=== PATIENT | male | born 1985 | race Caucasian/White ===

== ENCOUNTER 2017-12-17 19:11 | Emergency (ER) | payer OTHER ==
--- NOTE | 2017-12-17 20:07 | ED Physician Documentation ---
PD HPI UPPER EXT INJURY - Stated complaint Stated Complaint: LT THUMB INJ - Chief complaint Chief Complaint: Ext Problem - History obtained from History obtained from: Patient - History of Present Illness Location: Left, Hand (thenar muscles area), Finger Type of injury: Blunt / blow (he was chopping wood in splitter, and a chunk did not split completely, so he lifted it up to throw it and felt a pain in left hand near base of thumb. Kep working but it did hurt. Was able to grab and lift. Had swelling later and today has had increased swelling with bruising color in thenar area. Feeling stiffer for thumb movement.). No: Laceration, Puncture wound Worsened by: Moving, Palpating Associated symptoms: Weakness, Swelling, Discolored (bruising). No: Numbness Similar symptoms before: Has not had sx before Recently seen: Not recently seen Review of Systems Skin: denies: Abrasion (s), Laceration (s) Musculoskeletal: reports: Neck pain, Extremity swelling (near base of thumb and thenar part of hand) Neurologic: denies: Focal weakness, Numbness PD PAST MEDICAL HISTORY - Past Medical History Past Medical History: Yes GI: GERD Psych: Depression - Past Surgical History Past Surgical History: Yes General: Hiatal hernia repair /[employer]: Other (vasectomy) HEENT: Tonsil/Adenoidectomy - Present Medications Home Medications: Ambulatory Orders Medication Instructions Recorded Confirmed Omeprazole [PriLOSEC] 20 mg PO DAILY 05/25/13 02/27/16 Epinephrine [Epipen 2-Gene] 0.3 mg IJ ONCE PRN #1 kit 09/15/15 02/27/16 - Allergies Allergies/Adverse Reactions: Allergies Allergy/AdvReac Type Severity Reaction Status Date / Time Sulfa (Sulfonamide Allergy Unknown Verified 12/17/17 19:18 Antibiotics) - Social History Does the pt smoke?: No Smoking Status: Never smoker Does the pt drink ETOH?: Yes ETOH Use: Beer Does the pt have substance abuse?: No - Immunizations Immunizations are current?: Yes - POLST Patient has POLST: No PD ED PE NORMAL - Vitals Vital signs reviewed: Yes - General General: Alert and oriented X 3, No acute distress, Well developed/nourished - Derm Derm: Normal color, Warm and dry - Extremities Extremities: Other (left hand with bruising and swelling base of thumb and mostly thenar muscles. Tender and slightly tense in the area. Tender at UCL area of thumb but can oppose thumb (hurts/stiff due to swelling). ) Results - Vitals Vitals: Vital Signs - 24 hr 18 12/17/17 19:15 20:47 Temperature 36.7 C 36.3 C L Heart Rate 66 61 Respiratory 16 18 Rate Blood Pressure 141/99 H 130/90 H O2 Saturation 99 96 Oxygen O2 Source Room air - Rads (name of study) left thumb Radiology: Prelim report reviewed, EMP read contemporaneously (no fractures) PD MEDICAL DECISION MAKING - ED course Complexity details: considered differential (bruising and swelling of thenar muscle area - contusion or muscle injury - and does not seem loose at [facility]. No fracture. Will splint and recheck when swelling down. ), d/w patient - Sepsis Event Vital Signs: Vital Signs - 24 hr 12/17/17 12/17/17 19:15 20:47 Temperature 36.7 C 36.3 C L Heart Rate 66 61 Respiratory 16 18 Rate Blood Pressure 141/99 H 130/90 H O2 Saturation 99 96 Oxygen O2 Source Room air Departure - Departure Disposition: 01 Home, Self Care Clinical Impression: Thumb sprain Qualifiers: Encounter type: initial encounter Sprain of finger site: metacarpophalangeal joint Laterality: left Qualified Code(s): S63.642A - Sprain of metacarpophalangeal joint of left thumb, initial encounter Traumatic ecchymosis of left hand Qualifiers: Encounter type: initial encounter Qualified Code(s): S60.222A - Contusion of left hand, initial encounter Condition: Stable Record reviewed to determine appropriate education?: Yes Instructions: ED Sprain Finger Follow-Up: KAY FORDE DO [Primary Care Provider] - Comments: This seems likely to be a either bruising or partial tear of the thenar muscle in the hand. Concern would be for partial tearing of the ligament at the thumb base though the degree of bruising is less compatible with that. Still we will treated with a wrist and thumb splint for the next 4-5 days. Use Tylenol ibuprofen or naproxen as needed for pains. The bruising and swelling should go down over the next several days. Follow-up with your primary care. Call tomorrow for an appointment for later in the week for recheck after the swelling is down. Discharge Date/Time: 12/17/17 20:47
--- NOTE | 2017-12-17 20:32 | XRAY Report ---
Reason: blunt for injury with swelling, bruising Procedure Date: 12/17/2017 Accession Number: [id number] / [id number] Procedure: XR - Hand 3 View LT CPT Code: FULL RESULT: EXAM: LEFT HAND RADIOGRAPHY EXAM DATE: 12/17/2017 08:10 PM. CLINICAL HISTORY: Hand pain COMPARISON: None. TECHNIQUE: 3 views. FINDINGS: Bones: No fracture or focal bony lesion. Joints: No evidence of dislocation. Soft Tissues: No unexpected soft tissue findings. IMPRESSION: No evidence of fracture or dislocation. RADIA
[2017-12-17] MEDS ORDERED: traMADol 50 MG TABLET PO STA (20:34)
[2017-12-17] MEDS ORDERED: NAPROXEN 250 MG TABLET PO STA (20:34)
[2017-12-17 20:48] VITALS: BP 130/90
== END 2017-12-17 20:47 | disposition home or self-care (01) ==
LOC: ED 19:11
DX: S63.642A Sprain of metacarpophalangeal joint of left thumb, initial encounter (principal); S60.222A Contusion of left hand, initial encounter; X58.XXXA Exposure to other specified factors, initial encounter; Y93.H9 Activity, other involving exterior property and land maintenance, building and construction
CPT/HCPCS: 73130; 99283; A9270

== ENCOUNTER 2018-07-25 07:36 | Outpatient (CLI) | payer OTHER ==
[2018-07-25 08:21] LABS: ALBUMIN 4.4 g/dL (3.2-5.5); ALBUMIN/GLOBULIN RATIO 1.5 (1.0-2.2); BILIRUBIN,TOTAL 0.9 mg/dL (0.2-1.0); CALCIUM 8.8 mg/dL (8.5-10.3); CREATININE 0.8 mg/dL (0.6-1.2); TOTAL PROTEIN 7.4 g/dL (6.7-8.2)
[2018-07-25 09:55] LABS: T4 (THYROXINE) 9.84 ug/dL (6.09-12.23)
[2018-07-25 09:59] LABS: THYROID STIMULATING HORMONE 1.24 uIU/mL (0.34-5.60)
[2018-07-25 10:01] LABS: FREE T4 (FREE THYROXINE) 0.86 ng/dL (0.58-1.64)
== END 2018-07-25 07:37 | disposition home or self-care (01) ==
LOC: LAB 07:36
PROVIDERS: ATTEND Physician Assistant
DX: R11.0 Nausea (principal); R53.83 Other fatigue; R10.13 Epigastric pain
CPT/HCPCS: 36415; 80053; 84436; 84439; 84443

== ENCOUNTER 2021-04-07 15:27 | Emergency (ER) | payer OTHER ==
[2021-04-07 15:54] VITALS: BP 136/78
--- NOTE | 2021-04-07 16:23 | XRAY Report ---
PROCEDURE: Ankle 3 View RT INDICATIONS: ankle inj TECHNIQUE: 3 views of the ankle were acquired. COMPARISON: None FINDINGS: Bones: No acute fractures or dislocations. Ankle mortise is normally aligned. No suspicious bony l esions. Corticated ossification posterior to the talus likely representing an os trigonum. Small retr ocalcaneal spur. Soft tissues: No tibiotalar joint effusion. Achilles tendon appears normal. IMPRESSION: Right ankle without acute fracture or dislocation. If there is persistent clinical concern for a radiographically occult fracture, recommend immobilizat ion and repeat imaging in 10 to 14 days. Reviewed by: Kirk Dawson MD on 04/07/2021 4:22 PM PST Approved by: Kirk Dawson MD on 04/07/2021 4:22 PM PST Station ID: [id number]
--- NOTE | 2021-04-07 16:24 | XRAY Report ---
PROCEDURE: Shoulder 3 View LT INDICATIONS: shoulder inj TECHNIQUE: 3 views of the shoulder were acquired. COMPARISON: None. FINDINGS: Bones: No fractures or dislocations. No suspicious bony lesions. Visualized ribs appear intact. Soft tissues: No suspicious soft tissue calcifications. IMPRESSION: Left shoulder without acute fracture or dislocation. If there is persistent clinical concern for a radiographically occult fracture, recommend immobilizat ion and repeat imaging in 10 to 14 days. Reviewed by: Kirk Dawson MD on 04/07/2021 4:23 PM PST Approved by: Kirk Dawson MD on 04/07/2021 4:23 PM PST Station ID: [id number]
--- NOTE | 2021-04-07 16:58 | ED Physician Documentation ---
History of Present Illness - Stated complaint Stated Complaint: FALL, LEFT SHOULDER INJURY - Chief complaint Chief Complaint: Ext Problem - History obtained from History obtained from: Patient - History of Present Illness Timing: Today Pain level max: 6 Pain level now: 5 - Additonal information Additional information: Patient is a 36-year-old male who presents to the emergency department stating that he was jumping on a trash can when trying to compress the trash inside the can when he fell, landing on his left shoulder. He is states he initially had a right ankle pain but that has now resolved. The left shoulder is worse with movement, better with rest. Had tingling in the arm initially, no neck or back pain. No head injury. No loss of consciousness. Patient is right-handed Review of Systems Constitutional: denies: Fever, Chills GI: denies: Vomiting, Diarrhea Musculoskeletal: denies: Neck pain, Back pain Neurologic: denies: Headache, Head injury PD PAST MEDICAL HISTORY - Past Medical History Past Medical History: No GI: GERD Psych: Depression - Past Surgical History Past Surgical History: Yes General: Hiatal hernia repair /[employer]: Other (vasectomy) HEENT: Tonsil/Adenoidectomy - Present Medications Home Medications: Ambulatory Orders Medication Instructions Recorded Confirmed Omeprazole [PriLOSEC] 20 mg PO DAILY 05/25/13 04/07/21 HYDROcod/ACETAM 5/325 [[place] 5/325] 1 - 2 ea PO Q6H PRN #14 tablet 04/07/21 Meloxicam [Mobic] 15 mg PO DAILY PRN #20 tablet 04/07/21 - Allergies Allergies/Adverse Reactions: Allergies Allergy/AdvReac Type Severity Reaction Status Date / Time Sulfa (Sulfonamide Allergy Unknown Verified 04/07/21 15:54 Antibiotics) - Social History Does the pt smoke?: No Smoking Status: Never smoker Does the pt drink ETOH?: Yes Does the pt have substance abuse?: No - Immunizations Immunizations are current?: Yes - POLST Patient has POLST: No PD ED PE NORMAL - Vitals Vital signs reviewed: Yes - General General: Alert and oriented X 3, No acute distress, Well developed/nourished - HEENT HEENT: Atraumatic, PERRL, Moist mucous membranes, Pharynx benign - Neck Neck: Supple, no meningeal sign, No bony TTP, C-Spine cleared by NEXUS criteria - Cardiac Cardiac: RRR, Strong equal pulses - Respiratory Respiratory: No respiratory distress, Clear bilaterally - Abdomen Abdomen: Soft, Non tender, Non distended - Back Back: No spinal TTP - Derm Derm: Warm and dry - Extremities Extremities: No deformity, Other (Tender palpation over the left shoulder. No swelling or deformity. Limited range of motion secondary to pain. There is some mild tenderness at the rotator cuff, anterior aspect. Normal examination of all other major joints including the right ankle.) - Neuro Neuro: Alert and oriented X 3 - Psych Psych: Normal mood, Normal affect Results - Vitals Vitals: Vital Signs - 24 hr 04/07/21 15:49 Temperature 36.3 C L Heart Rate 73 Respiratory 18 Rate Blood Pressure 136/78 H O2 Saturation 99 Oxygen O2 Source Room air - Rads (name of study) Right ankle x-ray Radiology: Final report received, EMP read contemporaneously, See rad report (No acute abnormality) Left shoulder x-ray Radiology: Final report received, EMP read contemporaneously, See rad report (No acute abnormality) PD MEDICAL DECISION MAKING - ED course Complexity details: reviewed results, re-evaluated patient, considered differential, d/w patient ED course: 36-year-old male presents to the emergency department with a left shoulder injury. The right ankle is normal on exam, no longer painful and ambulating without difficulty. The left shoulder is likely a sprain, possible rotator cuff injury. We will have him follow-up with his doctor for further care. Instructed on gentle stretching. Given a sling. Patient counseled regarding signs and symptoms for which I believe and urgent re-evaluation would be necessary. Patient with good understanding of and agreement to plan and is comfortable going home at this time This document was made in part using voice recognition software. While efforts are made to proofread this document, sound alike and grammatical errors may occur. Departure - Departure Disposition: 01 Home, Self Care Clinical Impression: Sprain of left shoulder Qualifiers: Encounter type: initial encounter Shoulder sprain type: unspecified sprain Qualified Code(s): S43.402A - Unspecified sprain of left shoulder joint, initial encounter Right ankle injury Qualifiers: Encounter type: initial encounter Qualified Code(s): S99.911A - Unspecified injury of right ankle, initial encounter Condition: Good Instructions: ED Torn Rotator Cuff, ED Sprain Shoulder Follow-Up: EMANUEL STERN MD [Primary Care Provider] - Within 1 week [facility] [Provider Group] Prescriptions: Meloxicam [Mobic] 15 mg PO DAILY PRN #20 tablet PRN Reason: pain HYDROcod/ACETAM 5/325 [[place] 5/325] 1 - 2 ea PO Q6H PRN #14 tablet PRN Reason: Pain Comments: Your prescriptions were sent to [facility] in [place]. Please follow-up with orthopedics for repeat evaluation and further care. Return if you worsen. Continue to gently stretch the shoulder as discussed today. You can use the sling as needed for comfort. You may have a rotator cuff injury, but this is difficult to assess given the current amount of swelling and pain. Your x-ray does not show any acute abnormalities. I am prescribing a short course of narcotic pain medication for you. These are potentially dangerous and addictive medications that should be used carefully. These medications may constipate you. Take an jgyd-kgh-pnxntqm stool softener (docusate) twice daily with plenty of water while taking these medications. If you go 24 hours without a bowel movement, take vcvv-iiu-[id number] miralax, per package instructions. Do not drink or drive while taking these medications. If you received narcotic or sedating medications while in the emergency department, do not drive for 24 hours. Store this medication in a safe, secure place and out of reach of children. It is a violation of federal law to give or sell this medication to another person or to use in a manner other than prescribed. The ED will not refill narcotic prescriptions, including prescriptions lost or stolen. To dispose of unwanted medications: 1. [facility] at [address] [facility] in [place] has a medication drop box. They accept prescription medications (in pill form) Monday through Monday 9:00 a.m. to 5:00 p.m. 2. The [facility] accepts prescription medications (in pill form only) for disposal year round. Call for more information. 3. Contact the [facility] for the next [facility] sponsored prescription drug collection event. , [id number], or [phone]; Discharge Date/Time: 04/07/21 17:26
[2021-04-07] MEDS ORDERED: HYDROcod/ACETAM 5/325 MG TABLET PO STA (17:05)
[2021-04-07] MEDS ORDERED: MELOXICAM 7.5 MG TABLET PO STA (17:05)
== END 2021-04-07 17:26 | disposition home or self-care (01) ==
LOC: ED 15:27
DX: S43.402A Unspecified sprain of left shoulder joint, initial encounter (principal); S99.911A Unspecified injury of right ankle, initial encounter; W18.31XA Fall on same level due to stepping on an object, initial encounter; Y93.E9 Activity, other interior property and clothing maintenance
CPT/HCPCS: 73030; 73610; 99283; 99284; A9270

== ENCOUNTER 2021-07-22 18:31 | Emergency (ER) | payer OTHER ==
[2021-07-22 18:43] VITALS: BP 161/81
[2021-07-22] MEDS ORDERED: HYDROcod/ACETAM 5/325 MG TABLET PO STA (19:07)
--- NOTE | 2021-07-22 19:08 | ED Physician Documentation ---
PD HPI ABD PAIN - Stated complaint Stated Complaint: MALE /NAUSEA - Chief complaint Chief Complaint: Abd Pain - History obtained from History obtained from: Patient - Additional information Additional information: 36-year-old gentleman with history of epididymitis x1 with 4 days of increasing left testicular pain worse with walking. No urinary complaints or fevers. No concern for STIs. Review of Systems Constitutional: reports: Reviewed and negative Eyes: reports: Reviewed and negative Ears: reports: Reviewed and negative Nose: reports: Reviewed and negative Throat: reports: Reviewed and negative Cardiac: reports: Reviewed and negative Respiratory: reports: Reviewed and negative PD PAST MEDICAL HISTORY - Past Medical History GI: GERD Psych: Depression - Past Surgical History Past Surgical History: Yes General: Hiatal hernia repair /DOPER: Other (vasectomy) HEENT: Tonsil/Adenoidectomy - Present Medications Home Medications: Ambulatory Orders Medication Instructions Recorded Confirmed Omeprazole [PriLOSEC] 20 mg PO DAILY 05/25/13 04/07/21 HYDROcod/ACETAM 5/325 [[place] 5/325] 1 - 2 ea PO Q6H PRN #14 tablet 04/07/21 Meloxicam [Mobic] 15 mg PO DAILY PRN #20 tablet 04/07/21 Ciprofloxacin HCl [Cipro] 500 mg PO BID #20 tablet 07/22/21 HYDROcod/ACETAM 5/325 [[place] 5/325] 1 - 2 tab PO Q6H PRN #15 tablet 07/22/21 - Allergies Allergies/Adverse Reactions: Allergies Allergy/AdvReac Type Severity Reaction Status Date / Time Sulfa (Sulfonamide Allergy Unknown Verified 07/22/21 18:43 Antibiotics) - Social History Does the pt smoke?: No Smoking Status: Never smoker Does the pt drink ETOH?: Yes Does the pt have substance abuse?: No - Immunizations Immunizations are current?: Yes - POLST Patient has POLST: No PD ED PE NORMAL - Vitals Vital signs reviewed: Yes - General General: Alert and oriented X 3, No acute distress - HEENT HEENT: PERRL, EOMI - Neck Neck: Supple, no meningeal sign, No bony TTP - Male Male : Other (Left hemiscrotum is tender especially superiorly. Lie and scrotal skin appear normal. No hernia mass. Normal positive cremaster reflex.) - Neuro Neuro: Alert and oriented X 3, Normal speech Results - Vitals Vitals: Vital Signs - 24 hr 07/22/21 07/22/21 18:41 20:28 Temperature 36.8 C Heart Rate 77 Respiratory 16 18 Rate Blood Pressure 161/81 H O2 Saturation 100 Oxygen O2 Source Room air - Labs Labs: Laboratory Tests 07/22/21 18:49 Urine Color YELLOW Urine Clarity CLEAR Urine pH 6.5 Ur Specific [place] 1.010 Urine Protein NEGATIVE Urine Glucose (UA) NEGATIVE Urine Ketones NEGATIVE Urine Occult Blood NEGATIVE Urine Nitrite NEGATIVE Urine Bilirubin NEGATIVE Urine Urobilinogen 0.2 (NORMAL) Ur Leukocyte Esterase NEGATIVE Urine RBC None Seen Urine WBC 0-3 Ur Squamous Epith Cells NONE SEEN Urine Bacteria None Seen Urine Culture Comments NOT INDICATED PD MEDICAL DECISION MAKING - ED course ED course: 36-year-old gentleman with left testicular pain with a few days duration consistent with epididymitis proven on ultrasound. He has no concern or risk factors for STDs and as such is treated with Cipro. Departure - Departure Disposition: 01 Home, Self Care Clinical Impression: Epididymitis Condition: Good Record reviewed to determine appropriate education?: Yes Instructions: ED Epididymitis Prescriptions: Ciprofloxacin HCl [Cipro] 500 mg PO BID #20 tablet HYDROcod/ACETAM 5/325 [[place] 5/325] 1 - 2 tab PO Q6H PRN #15 tablet PRN Reason: Pain Comments: I sent prescriptions electronically to [facility] in [place]. Return if worsening. Follow-up with your doctor next week for recheck. If pain is mild you can take ibuprofen I am prescribing a short course of narcotic pain medication for you. These are potentially dangerous and addictive medications that should be used carefully. These medications may constipate you. Take an huvm-wyk-vimqhoq stool softener (docusate) twice daily with plenty of water while taking these medications. If you go 24 hours without a bowel movement, take [id number] miralax, per package instructions. Do not drink or drive while taking these medications. If you received narcotic or sedating medications while in the emergency department, do not drive for 24 hours. Store this medication in a safe, secure place and out of reach of children. It is a violation of federal law to give or sell this medication to another person or to use in a manner other than prescribed. The ED will not refill narcotic prescriptions, including prescriptions lost or stolen. To dispose of unwanted medications: 1. [facility] at [address] in [place] has a medication drop box. They accept prescription medications (in pill form) Monday through Monday 9:00 a.m. to 5:00 p.m. 2. The [facility] accepts prescription medications (in pill form only) for disposal year round. Call for more information. 3. Contact the [facility] for the next [facility] sponsored prescription drug collection event. , [id number], or [phone]; Note that many narcotic pain relievers also contain Tylenol/acetaminophen. Please ensure that your total dose of acetaminophen from all sources does not exceed 3 g (3000 mg) per day. Discharge Date/Time: 07/22/21 20:29
[2021-07-22 19:10] LABS: BILIRUBIN,URINE NEGATIVE (NEGATIVE); GLUCOSE, URINE (UA) NEGATIVE (NEGATIVE); KETONES,URINE (UA) NEGATIVE (NEGATIVE); LEUKOCYTE ESTERASE, URINE NEGATIVE (NEGATIVE); NITRITE,URINE NEGATIVE (NEGATIVE); OCCULT BLOOD,URINE NEGATIVE (NEGATIVE); PH,URINE 6.5 PH (5.0-7.5); PROTEIN,URINE NEGATIVE (NEGATIVE); UROBILINOGEN,URINE 0.2 (NORMAL) E.U./dL (NORMAL)
[2021-07-22 19:14] LABS: CLARITY,URINE CLEAR (CLEAR)
[2021-07-22 19:28] LABS: BACTERIA,URINE None Seen /HPF (None Seen); RBC,URINE None Seen /HPF (0-5); SQUAMOUS EPITHELIAL CELL,UR NONE SEEN (<= Few); WBC,URINE 0-3 /HPF (0-3)
[2021-07-22] MEDS ORDERED: HYDROcod/ACET 5/325 Prepack 4 PO STA (20:15)
[2021-07-22] MEDS ORDERED: CIPROFLOXACIN 250 MG TABLET PO STA (20:15)
--- NOTE | 2021-07-22 20:57 | Ultrasound Report ---
PROCEDURE: Testicle w/Doppler INDICATIONS: Testicular pain TECHNIQUE: Real-time scanning was performed of the scrotum and testicles, with image documentation. Color and p ulse Doppler interrogation was performed of both testicles. COMPARISON: None. FINDINGS: Right: Testicle is normal in size at 5.4 x 2.4 x 3.4 cm, and homogenous in echotexture. Epididymis is normal in overall size and morphology. No hydrocele or varicoceles. Overlying scrotal skin is no rmal in thickness. Left: Testicle is normal in size at 5.2 x 2.6 x 3.3 cm, and homogeneous in echotexture. Epididymis is normal in overall size and morphology. No hydrocele or varicoceles. Overlying scrotal skin is no rmal in thickness. Mildly increased vascularity of the left epididymis. Doppler: Color and pulse Doppler demonstrate normal and symmetric arterial flow in both testicles. IMPRESSION: Testicles without sonographic evidence for torsion. Left epididymitis. Reviewed by: Kirk Abebe MD on 07/22/2021 8:55 PM PDT Approved by: Kirk Abebe MD on 07/22/2021 8:55 PM PDT Station ID: [id number]
== END 2021-07-22 20:29 | disposition home or self-care (01) ==
LOC: ED 18:31
DX: N45.1 Epididymitis (principal)
CPT/HCPCS: 76870; 81001; 93975; 99282; 99284; A9270; 87086

== ENCOUNTER 2022-03-30 11:00 | Outpatient (CLI) | payer OTHER ==
[2022-03-30 11:48] VITALS: BP 122/72
--- NOTE | 2022-03-30 11:48 | SLEEP CARE CONSULTATION ---
Information from patient questionnaire entered by Amparo Taylor. I have reviewed and concur with the information entered by Amparo Taylor. This document represents the service I personally performed and the decisions made by me, Madeline Huffman ARNP. History of Present Illness Service Date and Time: 03/30/2022 1100 Reason for Visit: New patient, sleep apnea on CPAP therapy Chief Complaint: reports: Fatigue Date of Onset: 5MONTHS Usual bedtime: 930PM Time it takes to fall asleep: 15-20MIN Snores at night: Yes Observed to quit breathing while asleep: Yes Sleeps alone due to snoring: No Number of times waking at night: 0 Toss, Turn, or Twitch while sleeping: No Recalls having dreams: No Usually gets out of bed at: 0500 Feels refreshed in the morning: No Morning headache: Yes Sleepy or fatigued during the day: Yes Ever fallen asleep while driving: No Takes day naps: No Dreams during day naps: No Prior sleep studies: Yes ([facility] REMEMBER THE DATE ) Year and Where: betw [id number] Additional HPI information: ZULMA VAZQUEZ was previously diagnosed to have unknown, AHI unknown, sleep apnea-hypopnea syndrome and comes in today to establish care for CPAP therapy. - Parasomnia Symptoms Ever been unable to move upon waking from sleep: No Walks in sleep: No Talks in sleep: No Ever acted out dreams in sleep: No Ever felt weak in the knees when startled or emotional: No Bothered by creepy, crawly, restless sensations in legs: No Problems with memory or concentration: Yes CPAP Compliance Data - Data Reviewed with Patient Average duration of nightly device use: 7 hours 25 mins 52 secs Compliance rate %: 81.1 (83/90 days used) Current pressure setting (cmH2O): 5-12 Average residual AHI: 3 Central apnea: 0.5 Obstructive apnea: 1.2 Hypopnea: 1.3 Average large leak: 6 secs Subjective Patient concerns: reports: other. denies: aerophagia, mask discomfort, air blowing in eyes, mask leak noise, condensation in mask/hose, nasal congestion, dry mouth, nose, throat, epistaxis Observed to snore while using device: No Current pressure setting perceived as: too low (feels like he is gasping for air once in a while) On therapy, patient: reports: sleeping better, awakening more refreshed, being more awake and alert during the day, more rested overall. 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 Patient is and lives in [place]. Have you smoked in the past 12 months: Yes Cigarettes per day (20/pack): 10 (25YRS) Years of smokin Smoking Pack Years: 12.5 Alcohol use: Yes Alcohol amount and frequency: 6 PACK RARLEY 1 X A MONTH Caffeine use: Yes Caffeine amount and frequency: 1-2 CUPS OF COFFEE DAILY Family History Family history of sleep disordered breathing: Yes Family Hx Sleep Apnea: Mother: Snoring, Father: Snoring Allergies and Home Medications Known drug allergies: Yes (SULFA DRUGS ) Drug allergies reviewed: Yes Home medication list reviewed: Yes Allergy and home medication list: Medications: Omeprazole 20 mg twice a day Review of Systems Weight gain over past 5 years: 15 Cardiovascular: denies: high blood pressure Respiratory: reports: shortness of breath Gastrointestinal: reports: heartburn Neurological: denies: headaches Psychiatric: denies: anxiety, depression Ear/Nose/Throat: reports: tonsillectomy Endocrine: reports: excessive thirst Musculoskeletal: reports: joint pain Physical Exam Vital signs obtained and entered by: AMPARO Winkler MA Blood Pressure: 122/72 (LEFT ARM) Cuff size: regular Heart Rate: 74 O2 Saturation: 99 Height: 5 ft 10 in Weight: 215 lb 9.6 oz Body Mass Index: 30.9 BMI Classification: Obese Neck circumference: 17 Impression and Plan 1. Obstructive Sleep Apnea-Hypopnea Syndrome, unknown, with good treatment compliance and good apnea control. On CPAP therapy, the patient has better sleep quality and is more rested overall. Patient's last sleep study was done in [place], [place] around 12-15 years ago [facility]. He states he does not have a copy of his sleep study results but thinks he can call them and get a copy for us. I will order a sleep study to verify diagnosis and severity to be done if we are unable to get his records. 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 He has a RemStar CPAP that he has used for about 15 years. He feels that his symptoms of fatigue are coming back even though he is using his CPAP every night. Sometimes he feels the pressure is not enough but his has not noted any snoring when he uses his CPAP. He definitely needs to have his CPAP updated. Once I have sleep study results verifying his diagnosis, I will write a prescription to set him up with a DME supplier and new CPAP machine. I informed patient of need for follow up appointment after sleep study or when he gets new device to check compliance. He voiced understanding and agreement with plan. Patient's apnea severity and rationale for treatment to reduce apnea, improve sleep quality and reduce cardiovascular and cerebrovascular events was reviewed. I also reviewed the benefit of consistent device use of CPAP for gastric reflux. 2. Obesity, unspecified. Currently patients BMI is 30.9. Obesity increases the risk of apnea, CPAP pressure requirements and overall health risks especially cardiovascular and diabetes. Thus patient is advised to lose weight. * Continue auto CPAP pressure at 5-12 cmH2O * Confirming PSG/HST if unable to get copy of sleep study * Update supplies * Notify me if snoring with mask or feeling that the pressure is too much or too little * Attempt to lose weight * Call this office if any problems using CPAP * Return for follow up after sleep study or one month after obtaining new device, or sooner if concerns arise Counseling Topics: Weight loss health impact Visit Type: In Office Time Spent with Patient (minutes): 31 Provider Statement: I spent 100% of the Face to Face Visit with the patient with greater than 50% spent counseling the patient and coordination of care.
== END 2022-03-30 11:01 | disposition home or self-care (01) ==
LOC: SC 11:00
PROVIDERS: ATTEND Nurse Practitioner Family
DX: G47.33 Obstructive sleep apnea (adult) (pediatric) (principal); E66.9 Obesity, unspecified; Z68.30 Body mass index [BMI] 30.0-30.9, adult; F17.210 Nicotine dependence, cigarettes, uncomplicated
CPT/HCPCS: 99203; 99212

== ENCOUNTER 2022-04-13 08:45 | Outpatient (CLI) | payer OTHER | END 2022-04-13 08:46 | disposition home or self-care (01) | LOC: SC 08:45 | PROVIDERS: ATTEND Nurse Practitioner Family | DX: G47.33 Obstructive sleep apnea (adult) (pediatric) (principal); R09.02 Hypoxemia | CPT/HCPCS: 95806 ==

== ENCOUNTER 2022-04-20 14:02 | Outpatient (CLI) | payer OTHER ==
--- NOTE | 2022-04-20 14:22 | SLEEP CARE CONSULTATION ---
Information from patient questionnaire entered by Concetta Taylor. I have reviewed and concur with the information entered by Concetta Taylor. This document represents the service I personally performed and the decisions made by , Madeline Huffman ARNP. History of Present Illness Service Date and Time: 04/20/2022 1402 Initial Hockley Sleepiness Scale score: 11 (03/04/22) Current Hockley Sleepiness Scale score: 12 (04/20/22) Additional HPI information: ZULMA VAZQUEZ returns for follow up and results of the recently performed home sleep study. His sleep apnea was verified to be moderate obstructive sleep apnea with an average AHI of 25.9 and anastasiya oxygen saturation of 87%. He will continue with nasal CPAP therapy. Nasal autoCPAP set at 5-12 cmH20 will be continued. Patient counseled not drink alcohol less than 4 hours before bedtime as it can increase snoring and apnea. Patient was cautioned about risks of drowsy driving until sleepiness symptoms resolve. Patient denies drowsy driving. Sleep Study - Results Type of Sleep Study: Home sleep study (COMPLETED 04/13/22) Prior sleep studies: Yes ([facility] REMEMBER THE DATE ) Year and Where: betw [id number] Polysomnography/Home Sleep Study results: Physician Impression: The quality of the study is good. The length of the study is adequate (> 240 minutes). Please also see the tabulated and graphic data. 1. Obstructive Sleep Apnea-Hypopnea (ICD-10 G47.33), moderate, with an AHI of 25.9/hr and anastasiya SaO2 of 87%. During the study, the patient had 136 apneas (136 obstructive, 0 central, 0 mixed) and 61 hypopneas. The longest episode lasted 108.0 seconds. The respiratory events occurred more frequently during supine sleep (supine AHI was 92.5 and non-supine, 20.96). 2. Hypoxemia (ICD-10 R09.02), mild, with the lowest oxygen saturation of 87 % and 4.2 minutes with SaO2 under 90%. Baseline oxygen saturation was normal (Average oxygen saturation was 94%). Allergies and Home Medications Drug allergies reviewed: Yes (SULFA) Home medication list reviewed: Yes (no changes) Review of Systems Review of systems same as previous: Yes (no changes) Physical Exam Vital signs obtained and entered by: CONCETTA C, MA Blood Pressure: 124/80 (LEFT ARM) Cuff size: regular Heart Rate: 68 O2 Saturation: 97 Height: 5 ft 10 in Weight: 215 lb 6.4 oz Body Mass Index: 30.9 BMI Classification: Obese Impression and Plan 1. Obstructive Sleep Apnea-Hypopnea Syndrome, moderate, with lowest oxygen saturation of 87%. As mentioned above, the patient will be continued on nasal autoCPAP therapy with pressure set at 5-12 cmH2O. Compliance guidelines also reviewed. A copy of compliance guidelines will be given for reference at check out. Patient needs to be set up with a DME supplier. I will have my cis coordinator inform of DME options. Patient advised to contact this office if further supply problems. The patients CPAP is over 5 years old and of reasonable use. Thus, the CPAP will be updated. A DWO prescription will be made . Compliance guidelines for new device and follow up discussed. Patient's apnea severity and rationale for treatment to reduce apnea, improve sleep quality and reduce cardiovascular and cerebrovascular events was reviewed. I also reviewed the benefit of consistent device use of CPAP for gastric reflux. * Continue auto CPAP pressure at 5-12 cmH2O * Transfer DME * Update machine * Update supplies * Notify me if snoring with mask or feeling that the pressure is too much or too little * Attempt to lose weight * Call this office if any problems using CPAP * Return for follow up one month after obtaining new device, or sooner if concerns arise Counseling Topics: Weight loss health impact Visit Type: In Office Time Spent with Patient (minutes): 12 Provider Statement: I spent 100% of the Face to Face Visit with the patient with greater than 50% spent counseling the patient and coordination of care.
[2022-04-20 14:23] VITALS: BP 124/80
== END 2022-04-20 14:03 | disposition home or self-care (01) ==
LOC: SC 14:02
PROVIDERS: ATTEND Nurse Practitioner Family
DX: G47.33 Obstructive sleep apnea (adult) (pediatric) (principal); E66.9 Obesity, unspecified; Z68.30 Body mass index [BMI] 30.0-30.9, adult
CPT/HCPCS: 99212

== ENCOUNTER 2023-05-28 18:41 | Emergency (ER) | payer OTHER ==
[2023-05-28 19:00] VITALS: BP 149/97; O2SAT 99
--- NOTE | 2023-05-28 19:06 | ED Physician Documentation ---
PD HPI BACK PAIN - Stated complaint Stated Complaint: LT SHOULDER PX - Chief complaint Chief Complaint: Trauma Ch/Bk - History obtained from History obtained from: Patient, Family - Additional information Additional information: 38-year-old gentleman with history of Chirinos's esophagus, and has had ongoing left shoulder pain for many months now but it got much worse when he fell down the stairs about 10 days ago. He cannot range the shoulder at all, and the pain radiates down toward the elbow and there is intermittent numbness in the left third through fifth fingers. He cannot take NSAIDs because of the Chirinos's but the pain is excruciating. 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: Other (vasectomy) HEENT: Tonsil/Adenoidectomy - Present Medications Home Medications: Ambulatory Orders Medication Instructions Recorded Confirmed Omeprazole [PriLOSEC] 80 mg PO DAILY 05/25/13 04/20/22 Amox/Clav 875/125 [Augmentin] 1 each PO Q12H #20 tablet 05/28/23 Oxycodone HCl/Acetaminophen 1 - 2 each PO Q6H PRN #14 tablet 05/28/23 [Percocet 5-325 mg Tablet] - Allergies Allergies/Adverse Reactions: Allergies Allergy/AdvReac Type Severity Reaction Status Date / Time Sulfa (Sulfonamide Allergy Unknown Verified 05/28/23 18:50 Antibiotics) - Social History Does the pt smoke?: Yes Smoking Status: Current every day smoker Does the pt drink ETOH?: Yes Does the pt have substance abuse?: No - Immunizations Immunizations are current?: Yes - POLST Patient has POLST: No PD ED PE NORMAL - Vitals Vital signs reviewed: Yes - General General: Alert and oriented X 3, No acute distress - Neck Neck: Other (No midline spinal tenderness of the neck but he is tender over the left neck musculature. Full range of motion of the neck.) - Extremities Extremities: Other (Tender over the glenohumeral joint on the left, decreased range of motion due to pain but passive range of motion is better. He has a lot of pain with both internal and external rotation. I am not able to elicit any change in sensation on either side throughout the hands, forearms, or over the del) - Neuro Neuro: Alert and oriented X 3, No motor deficit, No sensory deficit, Normal speech Eye Opening: Spontaneous Motor: Obeys Commands Verbal: Oriented GCS Score: 15 Results - Vitals Vitals: Vital Signs - 24 hr 05/28/23 18:51 Temperature 36.5 C Heart Rate 80 Respiratory 14 Rate Blood Pressure 149/97 H O2 Saturation 99 Oxygen O2 Source Room air - Rads (name of study) CT of the cervical spine showing sinus disease and left shoulder x-ray was negative. Relevant Findings:: Final report received, EMP independent interpretation of test PD Medical Decision Making - ED course ED course: Seems like a rotator cuff injury, but given the intermittent numbness in the left hand cervical radiculopathy was also entertained. Relevant imaging negative for fracture/trauma, we did notice the fluid in his maxillary sinuses and patient is symptomatic from this for the last 2 weeks so we will treat with Augmentin. Otherwise he was given range of motion exercises and advised to follow-up for likely rotator cuff issue. Departure - Departure Disposition: 01 Home, Self Care Clinical Impression: Sinusitis Qualifiers: Sinusitis location: maxillary Chronicity: acute Recurrence: non-recurrent Qualified Code(s): J01.00 - Acute maxillary sinusitis, unspecified Rotator cuff disorder Qualifiers: Laterality: left Qualified Code(s): M67.912 - Unspecified disorder of synovium and tendon, left shoulder Neck strain Qualifiers: Encounter type: initial encounter Qualified Code(s): S16.1XXA - Strain of muscle, fascia and tendon at neck level, initial encounter Condition: Good Record reviewed to determine appropriate education?: Yes Instructions: ED Sprain Strain Neck, ED Sinusitis Abx Tx Prescriptions: Amox/Clav 875/125 [Augmentin] 1 each PO Q12H #20 tablet Oxycodone HCl/Acetaminophen [Percocet 5-325 mg Tablet] 1 - 2 each PO Q6H PRN #14 tablet PRN Reason: pain Comments: You are seen today for predominantly shoulder pain. I was worried about a pinched nerve in your neck, I do see some mild degenerative changes in your neck and also evidence of sinusitis which you say is symptomatic especially of the right maxillary sinus. I sent prescriptions for pain medications and antibiotics for the sinus infection to [facility]. [place]. Would recommend consideration for MRI of the left shoulder for what seems like likely rotator cuff tear to me. Return for new or worsening symptoms. The radiologist has not viewed your images yet. I will call you if there are major changes in diagnosis related to that. I am prescribing a short course of narcotic pain medication for you. These are potentially dangerous and addictive medications that should be used carefully. These medications may constipate you. Take an [id number] stool softener (docusate) twice daily with plenty of water while taking these medications. If you go 24 hours without a bowel movement, take [id number] miralax, per package instructions. Do not drink or drive while taking these medications. If you received narcotic or sedating medications while in the emergency department, do not drive for 24 hours. Store this medication in a safe, secure place and out of reach of children. It is a violation of federal law to give or sell this medication to another person or to use in a manner other than prescribed. The ED will not refill narcotic prescriptions, including prescriptions lost or stolen. To dispose of unwanted medications: 1. [facility] provides a drop box for medication in pill form only (no liquids) 8:00 am to 4:30 p.m. Monday-Monday in the lobby of the [facility] [place], [address] Empty pills into ziplock bag before disposal. Call [phone] for information. 2.[employer] is a free service available to all [facility] residents. Go to [email or web address] Note that many narcotic pain relievers also contain Tylenol/acetaminophen. Please ensure that your total dose of acetaminophen from all sources does not exceed 3 g (3000 mg) per day. Forms: PCP List Discharge Date/Time: 05/28/23 20:02
[2023-05-28] MEDS: oxyCODONE 5 MG TABLET PO STA (19:16)
--- NOTE | 2023-05-28 19:50 | XRAY Report ---
PROCEDURE: Shoulder 2+V LT INDICATIONS: shoulder inj TECHNIQUE: 3 views of the shoulder were acquired. COMPARISON: None. FINDINGS: Bones: No fractures or dislocations. No suspicious bony lesions. Visualized ribs appear intact. Soft tissues: No suspicious soft tissue calcifications. The visualized lungs are within normal limi ts. IMPRESSION: No acute bony abnormality. Reviewed by: Magalys Pugh MD on 05/28/2023 7:49 PM PST Approved by: Magalys Pugh MD on 05/28/2023 7:49 PM PST Station ID: [id number]
[2023-05-28] MEDS: oxyCODONE/ACET 5/325 Prepack 4 PO STA (19:55)
[2023-05-28] MEDS: AMOX/CLAV 875 MG/125 MG TABLET PO STA (19:55)
--- NOTE | 2023-05-28 20:38 | CT Report ---
PROCEDURE: Cervical Spine WO INDICATIONS: neck inj TECHNIQUE: Noncontrast 3 mm thick sections acquired from the skull base to the T4 level. Sagittal and coronal r eformats were then constructed. For radiation dose reduction, the following was used: automated exp osure control, adjustment of mA and/or kV according to patient size. COMPARISON: None. FINDINGS: Image quality: Diagnostic. Bones: No acute fractures or dislocations. No acute compression fractures of the vertebral bodies. Craniocervical junction is intact. C1-C2 relationship is preserved. Visualized superior ribs are inta ct. Straightening of cervical lordosis likely related to positioning and/or concurrent muscle spasms. Mil d multilevel cervical spondylosis. Soft tissues: Prevertebral soft tissues are normal in thickness. No paravertebral hematomas. No ap ical pneumothoraces. Scattered sphenoid, ethmoid, and bilateral maxillary sinus disease. IMPRESSION: Cervical spine without acute fracture or traumatic malalignment. Straightening of cervical lordosis likely related to positioning and/or concurrent muscle spasms. Scattered paranasal sinus disease. Reviewed by: Kirk Abebe MD on 05/28/2023 8:37 PM PST Approved by: Kirk Abebe MD on 05/28/2023 8:37 PM PST Station ID: [id number]
== END 2023-05-28 20:02 | disposition home or self-care (01) ==
LOC: ED 18:41
DX: S16.1XXA Strain of muscle, fascia and tendon at neck level, initial encounter (principal); M67.912 Unspecified disorder of synovium and tendon, left shoulder; W10.9XXA Fall (on) (from) unspecified stairs and steps, initial encounter; J01.00 Acute maxillary sinusitis, unspecified; K22.70 Barrett's esophagus without dysplasia; F17.200 Nicotine dependence, unspecified, uncomplicated; Z79.899 Other long term (current) drug therapy; Z88.2 Allergy status to sulfonamides
CPT/HCPCS: 72125; 73030; 99284; A9270